=== PATIENT | male | born 1940 | race Caucasian/White ===

== ENCOUNTER 2023-05-28 10:07 | Day surgery (SDC) | payer MEDICARE, OTHER ==
[~2023-05-28] VITALS: Ht 170.2 cm; Wt 82.4 kg
[2023-05-28] MEDS ORDERED: FURO40 PO (11:40)
[2023-05-28] MEDS ORDERED: LATA.005SO BOTHEYES (11:40)
[2023-05-28] MEDS ORDERED: ELIQUIS5 M2 PO (11:40)
[2023-05-28] MEDS ORDERED: LOSA50 (11:41)
[2023-05-28] MEDS ORDERED: OMEGA-3 + VITA200 ML PO (11:42)
[2023-05-28] MEDS ORDERED: SPIR50 (11:42)
[2023-05-28] MEDS ORDERED: MUPIROCIN1 G1 TOP (11:42)
[2023-05-28] MEDS ORDERED: POTA10T (11:42)
[2023-05-28] MEDS ORDERED: METO25ER PO (11:42)
[2023-05-28] MEDS ORDERED: TAMS.4ER (11:43)
== END 2023-05-28 13:22 | disposition home or self-care (01) ==
LOC: ORSCSDS 10:07
PROVIDERS: Internal Medicine Gastroenterology
PROC: 0DB68ZX Excision of Stomach, Via Natural or Artificial Opening Endoscopic, Diagnostic (ICD-10-PCS; principal; 2023-05-28 13:00)
DX: K74.60 Unspecified cirrhosis of liver (principal); K29.70 Gastritis, unspecified, without bleeding; Z95.0 Presence of cardiac pacemaker; I10 Essential (primary) hypertension; Z79.01 Long term (current) use of anticoagulants; Z79.899 Other long term (current) drug therapy
CPT/HCPCS: 88305; 88342; J2704; J7120